=== PATIENT | male | born 1980 | race Caucasian/White ===

== ENCOUNTER 2017-11-06 00:57 | Emergency (ER) | payer BC ==
[~2017-11-06] VITALS: Ht 172.7 cm; Wt 58.9 kg
[2017-11-06] MEDS ORDERED: TETanus/Pertussis (Acell)/Diphther VAC/PF (Tdap-Adult) 0.5ml syringe IM ONE (03:00)
[2017-11-06] MEDS ORDERED: LIDOcaine 1.5% w/epinephrine 1:200,000 5ml ampul IJ ONE ×2 (03:00→04:30)
[2017-11-06] MEDS ORDERED: lidocaine 1.5% w/epinephrine 1:200,000 10ml vial MPF IJ ONE (04:20)
[2017-11-06] MEDS ORDERED: ibuprofen 200mg tablet PO ONE (04:50)
[2017-11-06 05:01] VITALS: BP 127/78
== END 2017-11-06 05:10 | disposition home or self-care (01) ==
LOC: ER 00:57
DX: S01.01XA Laceration without foreign body of scalp, initial encounter (principal); W17.81XA Fall down embankment (hill), initial encounter; Y93.89 Activity, other specified; Y92.89 Other specified places as the place of occurrence of the external cause; Y99.8 Other external cause status
CPT/HCPCS: 12004; 90471; 90715; 99284; A6449; J3490